=== PATIENT | male | born 1950 | race Caucasian/White ===

== ENCOUNTER 2016-12-05 05:12 | Emergency (ER) | payer BC, MEDICARE ==
[~2016-12-05] VITALS: Ht 177.8 cm; Wt 80.6 kg
[2016-12-05 05:20] VITALS: BP 145/74
[2016-12-05] MEDS ORDERED: KETOROLAC 30 MG/1 ML ONE (06:09)
[2016-12-05] MEDS ORDERED: KETOROLAC 30 MG/1 ML IM ONE (06:30)
== END 2016-12-05 08:11 | disposition home or self-care (01) ==
LOC: ED 07:19
DX: M51.36 Other intervertebral disc degeneration, lumbar region (principal); M51.34 Other intervertebral disc degeneration, thoracic region; M47.894 Other spondylosis, thoracic region; M47.896 Other spondylosis, lumbar region; Z87.891 Personal history of nicotine dependence
CPT/HCPCS: 72040; 72072; 72100; 72220; 96372; 99284; J1885